=== PATIENT | female | born 1975 | race Caucasian/White ===

== ENCOUNTER 2020-04-04 13:51 | Emergency (ER) | payer SELFPAY ==
[~2020-04-04] VITALS: Ht 162 cm; Wt 109.7 kg
[2020-04-04 14:00] VITALS: BP 127/84
--- NOTE | 2020-04-04 14:33 | ED EENT ---
History of Present Illness General Chief Complaint: Eye Problems Stated Complaint: L EYE RED, BURNING Nursing Triage Note: Pt to ED with c/o eye redness, itching, discharge in L eye. Pt reports symptoms began one week ago and has been using Tobradex drops since last Saturday. Pt reports no vision in the L eye since last Saturday or Saturday. Source: patient Exam Limitations: no limitations History of Present Illness Date Seen by Provider: Apr 04, 2020 Time Seen by Provider: 14:10 Initial Comments This 45-year-old woman presents to the emergency room with complaints of left eye irritation, scleral redness, and clouding of the cornea. She has had intense pain throughout the week that is now subsiding. She has lost the majority of her vision in the left eye except for some visualization of a red light. She has photosensitivity. She noted her contact fell out a week ago Saturday and irritation started on a Saturday. She presented to the clinic and was started on TobraDex at that time. She states symptoms have worsened despite using TobraDex. She reports some sinus congestion symptoms just prior to onset of the eye irritation. She denies any trauma or foreign body. Allergies and Home Medications Allergies Coded Allergies: codeine (Verified Adverse Reaction, Unknown, Vomiting, 04/04/20) Patient Home Medication List Home Medication List Reviewed: Yes Review of Systems Review of Systems Constitutional: no symptoms reported Eyes: See HPI Ears: No Symptoms Reported Nose: no symptoms reported Mouth: no symptoms reported Throat: no symptoms reported Respiratory: no symptoms reported Cardiovascular: no symptoms reported Gastrointestinal: no symptoms reported Musculoskeletal: no symptoms reported Skin: no symptoms reported Neurological: No Symptoms Reported Hematologic/Lymphatic: No Symptoms Reported Past [place]-Fxtbed Hx Past Med/Social Hx: Reviewed Nursing Past Med/Soc Hx Patient Social History Alcohol Use: Denies Use Recreational Drug Use: No 2nd Hand Smoke Exposure: No Recent Foreign Travel: No Contact w/Someone Who Travel: No Recent Infectious Disease Expo: No Recent Hopitalizations: No Seasonal Allergies Seasonal Allergies: Yes Past Medical History Surgeries: Yes (wisdom teeth) Hysterectomy Respiratory: No Cardiac: Yes High Cholesterol, Hypertension Neurological: No : 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 oz. kg; 41.00 BMI Method: General Appearance: WD/WN, no apparent distress Eyes: right eye normal inspection; left eye other (Severe scleral erythema. Clouding cornea over the iris and pupil. Pupil is largely obscured. Vision nearly gone except for a faint red light. Upper and lower lids mildly erythematous.); bilateral eye EOMI Ears: bilateral ear auricle normal, bilateral ear canal normal, bilateral ear TM normal Nose: normal inspection Neck: normal inspection Cardiovascular: regular rate, rhythm, no murmur Respiratory: lungs clear, normal breath sounds, no respiratory distress Neurologic/Psychiatric: alert, normal mood/affect, oriented x 3, other (Neurologic evaluation of the left eye obscured by superficial pathology) Skin: normal color, warm/dry, other (See eye exam above) Progress/Results/Core Measures Results/Orders Vital Signs/I&O 04/04/20 14:00 Temp 36.9 Pulse 99 Resp 22 B/P (MAP) 127/84 (98) Pulse Ox 97 O2 Delivery Room Air Blood Pressure Mean: 98 Progress Progress Note : Time: 14:47 Progress Note Case was reviewed with Dr. Niño at the [facility]. He requested to see the patient immediately in the clinic, and patient was discharged with instructions to present to directly for Dr. Niño's evaluation. Departure Impression Primary Impression: Keratitis Additional Impression: Conjunctivitis Qualified Codes: H10.32 - Unspecified acute conjunctivitis, left eye Disposition: 01 HOME, SELF-CARE Condition: Unchanged Departure-Patient Inst. Decision time for Depature: 14:32 Referrals: DONTAE CORRALES DO (PCP) Primary Care Physician LEAH ESCOBAR (Family) Primary Care Physician Patient Instructions: Conjunctivitis ([place]) Add. Discharge Instructions: Go directly to [facility] [place] for immediate evaluation. All discharge instructions reviewed with patient and/or family. Voiced understanding. FERNANDO FRANCO MD Apr 04, 2020 14:33
== END 2020-04-04 14:39 | disposition home or self-care (01) ==
LOC: EDUNIT# 13:51 → ER 13:53
DX: H16.9 Unspecified keratitis (principal); H10.32 Unspecified acute conjunctivitis, left eye; Z88.5 Allergy status to narcotic agent
CPT/HCPCS: 99282

== ENCOUNTER → 2020-07-04 | Outpatient (CLI) | payer OTHER ==
[2020-07-04 13:34] LABS: BASOPHILS # (AUTO) 0.1 10^3/uL (0.0-0.1); BASOPHILS % (AUTO) 1 % (0-10); EOSINOPHILS # (AUTO) 0.3 10^3/uL (0.0-0.3); EOSINOPHILS % (AUTO) 4 % (0-10); HEMATOCRIT 43 % (35-52); HEMOGLOBIN 14.4 g/dL (11.5-16.0); LYMPHOCYTES # (AUTO) 2.3 10^3/uL (1.0-4.0); LYMPHOCYTES % (AUTO) 31 % (12-44); MEAN CORPUSCULAR HEMOGLOBIN 31 pg (25-34); MEAN CORPUSCULAR HGB CONC 34 g/dL (32-36); MEAN CORPUSCULAR VOLUME 93 fL (80-99); MEAN PLATELET VOLUME 9.6 fL (9.0-12.2); MONOCYTES # (AUTO) 0.6 10^3/uL (0.0-1.0); MONOCYTES % (AUTO) 8 % (0-12); NEUTROPHILS # (AUTO) 4.1 10^3/uL (1.8-7.8); NEUTROPHILS % (AUTO) 56 % (42-75); PLATELET COUNT 343 10^3/uL (130-400); WHITE BLOOD COUNT 7.4 10^3/uL (4.3-11.0)
[2020-07-04 13:48] LABS: ALBUMIN 4.2 GM/DL (3.2-4.5); BILIRUBIN,DIRECT 0.2 MG/DL (0.0-0.3); BILIRUBIN,INDIRECT 0.4 MG/DL; BILIRUBIN,TOTAL 0.6 MG/DL (0.1-1.0); TOTAL PROTEIN 7.5 GM/DL (6.4-8.2)
== END ==
LOC: LAB 12:59
DX: H16.07 Perforated corneal ulcer (principal); Z94.7 Corneal transplant status; Z94.84 Stem cells transplant status
CPT/HCPCS: 36415; 80076; 85025

== ENCOUNTER 2021-05-30 10:02 | Day surgery (SDC) | payer OTHER ==
[~2021-05-30] VITALS: Ht 161 cm; Wt 102.0 kg
[~2021-05-30 10:02] MED LIST: ACET-575 PO; ACET325T49 PO; CALC-195 PO; CINN500C2 PO; CITA20TA9 PO; GLUC500T10 PO; IBUP-2185 PO; LISI1TAB46 PO; METF-399 PO; METO50TA7 PO; MYCO500T3 PO; NIAC500T24 PO; PRED5DRO24 OP; SIMV40TA25 PO; TURM1CAP PO; [UNRECOGNIZED DRUG - CODE] PO; [UNRECOGNIZED DRUG - CODE] PO
[2021-05-30] MEDS ORDERED: LACTATED RINGERS 1,000 ML IV ONE (10:14)
[2021-05-30] MEDS ORDERED: LACTATED RINGERS 1,000 ML IV STA (10:20)
[2021-05-30 10:40] VITALS: BP 119/96
--- NOTE | 2021-05-30 12:04 | Progress Note-Pre Operative ---
Pre-Operative Progress Note H&P Reviewed The H&P was reviewed, patient examined and no changes noted. Date Seen by Provider: May 30, 2021 Time Seen by Provider: 12:03 Date H&P Reviewed: May 30, 2021 Time H&P Reviewed: 12:03 Pre-Operative Diagnosis: blood in stool SHARIF TIM DO May 30, 2021 12:04
[2021-05-30] MEDS ORDERED: MIDAZOLAM 2 MG/2 ML (VERSED) VIAL ONE (12:41)
[2021-05-30] MEDS ORDERED: PROPOFOL INJECTION 50 ML IV ONE (12:41)
[2021-05-30 13:10] VITALS: BP 108/63
--- NOTE | 2021-05-30 13:10 | Progress Note-Post Operative ---
Post-Operative Progess Note Surgeon (s)/Entry Level Java Developer (s) Surgeon SHARIF TIM DO Entry Level Java Developer: na Pre-Operative Diagnosis blood in stool Post-Operative Diagnosis normal colon Procedure & Operative Findings Date of Procedure 05/30/21 Procedure Performed/Findings colonoscopy Anesthesia Type per green inspector Estimated Blood Loss Estimated blood loss (mL): na Specimens/Packing Specimens Removed na SHARIF TIM DO May 30, 2021 13:10
--- NOTE | 2021-05-30 13:13 | Discharge Inst-Simple/Standard ---
Discharge Inst-Standard Patient Instructions/Follow Up Plan of Care/Instructions/FU: 10 years Barrett unless family history of colon cancer then 5 years. Any issues before that be seen at that time. Activity as Tolerated: Yes Discharge Diet: Regular Diet SHARIF TIM DO May 30, 2021 13:13
[2021-05-30 13:20] VITALS: BP 112/72
[2021-05-30 13:33] VITALS: BP 111/72
--- NOTE | 2021-05-30 13:36 | Anesthesia-General Post-Op ---
MAC Patient Condition Mental Status/LOC: Same as Preop Cardiovascular: Satisfactory Nausea/Vomiting: Absent Respiratory: Satisfactory Pain: Controlled Complications: Absent Post Op Complications Complications None Follow Up Care/Instructions Patient Instructions None needed. Anesthesiology Discharge Order Discharge Order Patient is doing well, no complaints, stable vital signs, no apparent adverse anesthesia problems. No complications reported per nursing. RAJAT HOOPER CRNA May 30, 2021 13:36
--- NOTE | 2021-05-30 19:37 | OPERATIVE REPORT ---
DATE OF SERVICE: 05/30/2021 PREOPERATIVE DIAGNOSIS: History of blood in stool. POSTOPERATIVE DIAGNOSIS: Normal colon. PROCEDURE PERFORMED: Colonoscopy. SURGEON: Sharif Hyde DO ANESTHESIA: Per HORTICULTURAL NURSERY ASSISTANT. ESTIMATED BLOOD LOSS: None. COMPLICATIONS: None. INDICATIONS FOR PROCEDURE: The patient is a 46-year-old female needing colonoscopy for further evaluation. She understands the risks and benefits of the procedure and wishes to proceed. Consent was signed in the chart. DESCRIPTION OF PROCEDURE: The patient was taken to the endoscopy suite and placed in a left lateral recumbent position. A timeout was performed. Digital rectal exam was performed. No palpable polyps, masses or ulcerations. Scope was inserted in the rectum and advanced all the way to cecum with minimal difficulty. Prep was adequate. Scope was then slowly retracted back. No polyps, masses or ulcerations within the cecum, ascending, transverse, descending, and sigmoid colon. Once in the rectum, scope was retroflexed noting no other pathology. Scope was returned to its normal position and slowly withdrawn until completely removed. The patient tolerated the procedure well without any complications. She was taken to recovery room in stable condition. RECOMMENDATIONS: The patient will need a repeat colonoscopy in 10 years unless family history of colon cancer, which would then be 5 years. Any issues, the patient to be reevaluated at that time. CC: Jonathon Bergman - requested, unable to deliver. Job ID: [id number] DocumentID: [id number] Dictated Date: 05/30/2021 13:08:07 Dry Kiln Loader Date: 05/30/2021 19:37:34 Dictated By: SHARIF HYDE DO
== END 2021-05-30 13:40 | disposition home or self-care (01) ==
LOC: ENDO 10:02
PROVIDERS: ATTEND Surgery
DX: R19.5 Other fecal abnormalities (principal); R73.03 Prediabetes; E66.01 Morbid (severe) obesity due to excess calories; I10 Essential (primary) hypertension; E78.5 Hyperlipidemia, unspecified; K62.5 Hemorrhage of anus and rectum; F41.9 Anxiety disorder, unspecified; Z79.84 Long term (current) use of oral hypoglycemic drugs; Z79.899 Other long term (current) drug therapy; Z68.39 Body mass index [BMI] 39.0-39.9, adult; Z90.49 Acquired absence of other specified parts of digestive tract; Z90.710 Acquired absence of both cervix and uterus